=== PATIENT | female | born 1965 | race Caucasian/White ===

== ENCOUNTER 2021-03-03 09:59 | Outpatient (CLI) | payer BC | END 2021-03-03 10:00 | disposition home or self-care (01) | LOC: CSHULT 09:59 | PROVIDERS: ATTEND Family Medicine | DX: R31.29 Other microscopic hematuria (principal) | CPT/HCPCS: 76770 ==

== ENCOUNTER 2021-06-23 14:58 | Emergency (ER) | payer BC | END 2021-06-23 17:22 | disposition home or self-care (01) | LOC: CSHERS 14:58 | DX: S05.12XA Contusion of eyeball and orbital tissues, left eye, initial encounter (principal); E05.90 Thyrotoxicosis, unspecified without thyrotoxic crisis or storm; Z79.899 Other long term (current) drug therapy; Z79.82 Long term (current) use of aspirin; W22.8XXA Striking against or struck by other objects, initial encounter | CPT/HCPCS: 70450; 70486 ==